=== PATIENT | female | born 1955 | race African-American/Black ===

== ENCOUNTER 2021-12-01 20:24 | Emergency (ER) | payer OTHER ==
[~2021-12-01] VITALS: Ht 160 cm; Wt 81.2 kg
[~2021-12-01 20:24] MED LIST: AMBIEN 5 MG TABL5 M1 PO; ANTIVERT25 MG PO; ARAVA10 MG PO; AVAPRO300 MG PO; BENICAR40 MG PO; BENTYL 10 MG CA10 M1 PO; BENTYL20 MG PO; CALCIUM 500 +1 EAC5 PO; CIPROFLOXACIN500 M1 PO; COREG6.25 MG PO; DIFLUCAN150 MG PO; ESTRACE1 MG PO; FLAGYL 250 MG250 MG PO; FLONASE 0.05%50 MCG NASAL; HYDROCODONE-AP1 EAC6 PO; NAPROSYN500 MG PO; NIFEDIPINE ER90 M1 PO; NORCO 5-325 TA1 EACH PO; ORENCIA; OXYBUTYNIN 5 MG5 M2 PO; PREDNISONE 5 MG5 MG PO; ZOFRAN ODT4 MG PO; [UNRECOGNIZED DRUG - OTHER] PO
[2021-12-01 22:00] LABS: ABSOLUTE NEUTROPHILS 9.4 thou/uL (1.4-8.2); BASOPHILS 0.2 % (0.0-2.0); EOSINOPHILS 0.1 % (0.0-3.0); HEMATOCRIT 35.6 % (37.0-47.0); HEMOGLOBIN 12.2 gm/dL (12.0-15.0); LYMPHOCYTES 19.6 % (24.0-44.0); MCH 30.2 pg (26.0-34.0); MCHC 34.2 g/dL (28.0-37.0); MCV 88.4 fL (80.0-100.0); MONOCYTES 2.7 % (1.0-8.0); PLATELET COUNT 357 thou/uL (150-400); POLYS 77.4 % (36.0-66.0); RBC 4.02 mil/uL (4.20-5.00); RDW 15.1 % (10.5-14.5); WBC 12.2 thou/uL (4.0-11.0)
[2021-12-01 22:04] LABS: URINE BILIRUBIN NEGATIVE (Negative); URINE BLOOD TRACE (Negative); URINE CLARITY CLEAR; URINE COLOR YELLOW; URINE GLUCOSE-RANDOM* NEGATIVE (Negative); URINE KETONES NEGATIVE (Negative); URINE LEUKOCYTES-REFLEX NEGATIVE (Negative); URINE NITRITE-REFLEX NEGATIVE (Negative); URINE PROTEIN (DIPSTICK) TRACE (Negative); URINE UROBILINOGEN 0.2 E.U./dl (0.2-1.0)
[2021-12-01 22:11] LABS: CALCIUM 9.4 mg/dL (8.5-10.1); CREATININE 0.8 mg/dL (0.6-1.0); POTASSIUM 3.9 mmol/L (3.5-5.1)
[2021-12-01 22:17] LABS: ALBUMIN 3.8 g/dL (3.4-5.0); TOTAL BILIRUBIN 0.6 mg/dL (0.2-1.0); TOTAL PROTEIN 9.2 g/dL (6.4-8.2)
[2021-12-02] MEDS ORDERED: AMOX TR-K CLV1 EAC4 PO (01:44)
[2021-12-02] MEDS ORDERED: METRONIDAZOLE500 M4 PO (01:44)
[2021-12-02] MEDS ORDERED: APAP W/CODEINE1 TA2 PO (01:44)
[2021-12-02] MEDS ORDERED: NAPROSYN500 MG PO (01:47)
[2021-12-02 01:52] VITALS: BP 170/82
== END 2021-12-02 02:01 | disposition home or self-care (01) ==
LOC: ER 20:24
PROVIDERS: Physician Assistant
DX: K59.00 Constipation, unspecified (principal); R10.30 Lower abdominal pain, unspecified; I10 Essential (primary) hypertension; K52.9 Noninfective gastroenteritis and colitis, unspecified; Z79.899 Other long term (current) drug therapy; Z90.710 Acquired absence of both cervix and uterus; Z90.49 Acquired absence of other specified parts of digestive tract; Z88.8 Allergy status to other drugs, medicaments and biological substances